=== PATIENT | male | born 1990 | race Caucasian/White ===

== ENCOUNTER 2021-05-29 11:21 | Emergency (ER) | payer SELFPAY ==
[~2021-05-29] VITALS: Ht 182.9 cm; Wt 136.4 kg
[2021-05-29 14:12] LABS: BASO # 0.1 (0.0-0.2); BASO % 0.8 % (0.0-2.0); EOS # 0.5 (0.0-0.7); EOS % 4.6 % (0-4.0); GRAN # 6.4 (1.4-6.5); GRAN % 62.3 % (42.2-75.2); HEMATOCRIT 44.5 % (42.0-52.0); LYMPH # 2.5 (1.2-3.4); LYMPH % 24.3 % (20.0-51.0); MEAN CELL VOLUME 85 fl (80.0-100.0); MEAN CORPUSCULAR HEMOGLOBIN 29 pg (27.0-31.0); MEAN CORPUSCULAR HGB CONC 34 g/dl (33.0-37.0); MONO # 0.8 (0.1-0.6); MONO % 7.7 % (1.7-9.3); PLATELET COUNT 307 K/mm3 (130-400); RED BLOOD COUNT 5.22 M/mm3 (4.20-5.60); REDCELL DISTRIBUTION WIDTH-CV 12.6 % (11.5-14.5)
[2021-05-29 14:24] LABS: ALANINE AMINOTRANSFERASE 58 U/L (4-49); ALKALINE PHOSPHATASE 87 U/L (50-136); ANION GAP 3 mmol/L (7-16); AST,SGOT 44 U/L (15-37); BILIRUBIN,TOTAL 0.4 mg/dL (0.0-1.0); BLOOD UREA NITROGEN 11 mg/dL (9-20); CARBON DIOXIDE 29 mmol/L (22-30); CHLORIDE 107 mmol/L (98-107); CREATININE, serum 0.71 (0.66-1.25); GLUCOSE 95 mg/dL (74-106); POTASSIUM 3.9 mmol/L (3.4-5.0); SODIUM 139 mmol/L (137-145); TOTAL PROTEIN 7.6 gm/dL (6.4-8.2)
[2021-05-29 14:35] LABS: TROPONIN-I < 0.012 ng/mL (0.000-0.035)
[2021-05-29 22:43] VITALS: BP 148/96; PULSE 87; TEMP 98
== END 2021-05-29 15:03 | disposition home or self-care (01) ==
LOC: COL.ER 11:21
PROVIDERS: Nurse Practitioner
DX: I10 Essential (primary) hypertension (principal); Z20.822 Contact with and (suspected) exposure to COVID-19

== ENCOUNTER 2022-02-13 22:19 | Emergency (ER) | payer SELFPAY ==
[~2022-02-13] VITALS: Ht 182.9 cm; Wt 136.4 kg
[2022-02-13 22:28] VITALS: TEMP 98.3
[2022-02-13 22:42] LABS: COLLECTION METHOD CLEAN CATCH
[2022-02-13 22:45] LABS: BASO # 0.1 K/mm3 (0.0-0.2); BASO % 0.6 % (0.0-2.0); EOS # 0.3 K/mm3 (0.0-0.7); EOS % 2.7 % (0.0-4.0); GRAN # 5.7 K/mm3 (1.4-6.5); GRAN % 59.7 % (42.2-75.2); HEMATOCRIT 43.4 % (42.0-52.0); HEMOGLOBIN 14.7 g/dl (13.5-18.0); LYMPH # 2.9 K/mm3 (1.2-3.4); LYMPH % 30.6 % (20.0-51.0); MEAN CELL VOLUME 83 fl (80.0-100.0); MEAN CORPUSCULAR HEMOGLOBIN 28 pg (27-31); MEAN CORPUSCULAR HGB CONC 34 g/dl (33.0-37.0); MEAN PLATELET VOLUME 9.7 fl (7.4-10.4); MONO # 0.6 K/mm3 (0.1-0.6); MONO % 6.2 % (1.7-9.3); PLATELET COUNT 316 K/mm3 (130-400); RED BLOOD COUNT 5.23 M/mm3 (4.20-5.60); REDCELL DISTRIBUTION WIDTH-CV 12.6 % (11.5-14.5)
[2022-02-13 22:50] LABS: AMORPHOUS CRYSTAL Present (NOT PRESENT); MUCOUS Present (NOT PRESENT); PH 6 (5-8); SQUAMOUS EPITHELIAL None Seen /hpf (0-10); URINE APPEARANCE Hazy (CLEAR/HAZY); URINE BACTERIA None Seen /hpf (NONE SEEN); URINE BILIRUBIN Negative (NEGATIVE); URINE BLOOD Negative (NEGATIVE); URINE COLOR Yellow (YELLOW); URINE GLUCOSE Negative (NEGATIVE); URINE KETONE Negative (NEGATIVE); URINE LEUKOCYTE ESTERASE Negative (NEGATIVE); URINE NITRATE Negative (NEGATIVE); URINE PROTEIN(semi-quant) Negative (NEGATIVE); URINE RBC 0-2 /hpf (0-2); URINE UROBILINOGEN Negative (NEGATIVE)
[2022-02-13 23:05] LABS: ALBUMIN 3.6 gm/dL (3.5-5.0); BILIRUBIN,TOTAL 0.4 mg/dL (0.2-1.2); CALCIUM 8.6 mg/dL (8.4-10.2); CREATININE, serum 0.94 mg/dL (0.72-1.25); MAGNESIUM 2.1 mg/dL (1.6-2.6); POTASSIUM 3.9 mmol/L (3.5-4.5); TOTAL PROTEIN 6.9 gm/dL (6.2-8.1)
[2022-02-13 23:26] LABS: TSH w REFLEX 1.164 uIU/mL (0.350-4.940)
[2022-02-13 23:50] VITALS: BP 146/92; PULSE 81
== END 2022-02-13 23:54 | disposition home or self-care (01) ==
LOC: COL.ER 22:19
PROVIDERS: Emergency Medicine
DX: R53.83 Other fatigue (principal); Z87.448 Personal history of other diseases of urinary system; Z20.822 Contact with and (suspected) exposure to COVID-19

== ENCOUNTER 2022-06-09 08:47 | Emergency (ER) | payer SELFPAY ==
[~2022-06-09] VITALS: Ht 182.9 cm; Wt 104.5 kg
[2022-06-09 09:03] VITALS: BP 160/116; TEMP 98.2
[2022-06-09] MEDS ORDERED: AMOXICILLIN 8751 TAB PO (11:22)
[2022-06-09 11:26] VITALS: PULSE 75
== END 2022-06-09 11:27 | disposition home or self-care (01) ==
LOC: COL.ER 08:47
DX: K02.9 Dental caries, unspecified (principal); K04.7 Periapical abscess without sinus; Z28.310 Unvaccinated for COVID-19
CPT/HCPCS: J1885

== ENCOUNTER 2022-07-14 12:20 | Emergency (ER) | payer SELFPAY ==
[~2022-07-14] VITALS: Ht 182.9 cm; Wt 143.2 kg
[~2022-07-14 12:20] MED LIST: AMOXICILLIN 8751 TAB PO
[2022-07-14 12:24] VITALS: TEMP 96.9
[2022-07-14] MEDS ORDERED: PERCOCET 325 MG1 TA2 PO (13:20)
[2022-07-14] MEDS ORDERED: MEDROL 4MG DOSPA4 MG PO (13:20)
[2022-07-14 13:45] VITALS: BP 142/89; PULSE 76
== END 2022-07-14 13:45 | disposition home or self-care (01) ==
LOC: COL.ER 12:20
DX: M25.552 Pain in left hip (principal); Z28.310 Unvaccinated for COVID-19